=== PATIENT | female | born 1965 | race Caucasian/White ===

== ENCOUNTER → 2019-03-02 | Outpatient (CLI) | payer MEDICARE, MEDICAID ==
--- NOTE | 2019-03-02 17:35 | Diagnostic Imaging Report ---
PROCEDURE: CT chest without contrast. TECHNIQUE: Multiple contiguous axial images were obtained through the chest without the use of intravenous contrast. Auto Exposure Controls were utilized during the CT exam to meet ALARA standards for radiation dose reduction. INDICATION: COPD and shortness of breath. Evaluate for lung nodules. FINDINGS: There are background features of underlying centrilobular pulmonary emphysema. There are few tiny calcified granulomas demonstrated within the lungs bilaterally. In the right upper lobe, there appear to be small regions of patchy tree-in-bud nodularity which would be favored to be inflammatory in nature. There is no dominant pulmonary nodule or mass. There is some minimal linear scarring or atelectasis within the inferior aspect of the lingula. There are no findings of a pleural effusion demonstrated. There is no evidence of a pneumothorax. No pathologic enlargement of mediastinal lymph nodes evident. Thoracic aorta is normal in caliber. There are advanced coronary calcifications. There is no abnormal pericardial collection. The visualized portion of the upper abdomen demonstrates no acute process. An aortic stent graft device is noted. Alignment of the thoracic spine appears normal. There are no suspicious lytic or blastic osseous lesions. No acute fracture evident. IMPRESSION: 1. Background features of underlying centrilobular pulmonary emphysema. 2. Scattered bilateral calcified granulomas. 3. Additionally, there appear to be some minimal regions of [id number]-type inflammatory-appearing nodularity along several of the bronchi within the right upper lobe that are favored to be inflammatory in nature. 4. No dominant pulmonary mass or evidence of noncalcified pulmonary nodules. 5. No evidence of adenopathy. 6. Advanced coronary calcifications. 7. Prior abdominal aortic stent graft. Dictated by: Dictated on workstation # [id number]
== END ==
LOC: RAD 13:30
PROVIDERS: ATTEND Nurse Practitioner Family
DX: J44.9 Chronic obstructive pulmonary disease, unspecified (principal); I25.10 Atherosclerotic heart disease of native coronary artery without angina pectoris; L92.9 Granulomatous disorder of the skin and subcutaneous tissue, unspecified; R91.1 Solitary pulmonary nodule; Z95.828 Presence of other vascular implants and grafts
CPT/HCPCS: 71250

== ENCOUNTER → 2019-11-25 | Outpatient (CLI) | payer MEDICARE, MEDICAID ==
[2019-11-25 12:15] LABS: CREATININE SERUM 0.87 MG/DL (0.60-1.30); GFR ESTIMATED > 60
[2019-11-25 12:16] LABS: BUN/CREATININE RATIO 15
--- NOTE | 2019-11-25 12:33 | Diagnostic Imaging Report ---
EXAMINATION: CT Chest without contrast. TECHNIQUE: Multiple contiguous axial images were obtained through the chest without the use of intravenous contrast. All CT scans use one or more of the following dose optimizing techniques: automated exposure control, MA and/or KvP adjustment based on a patient size and exam type, or iterative reconstruction. HISTORY: Hypoxia. COMPARISON: 03/02/2019. FINDINGS: There is no edema or pneumonia. No pleural effusion. No pneumothorax. No suspicious nodules. Previously seen tree-in-bud nodules are no longer apparent. There is a small amount of lingular atelectasis. A few tiny chanel-fissural nodules, likely lymph nodes are stable. Lungs are moderately emphysematous. There is no axillary or supraclavicular lymphadenopathy. There is no mediastinal lymphadenopathy. Heart size is normal. There are moderate coronary artery calcifications. No pericardial effusion. Aorta is normal in caliber. Limited views of the upper abdomen show abdominal stent graft. There are no suspicious osseous lesions. IMPRESSION: 1. Previously seen tree-in-bud nodules are resolved. Other nodules are stable. No suspicious nodules are seen. Dictated by: Dictated on workstation # [id number]
== END ==
LOC: RAD 12:15
PROVIDERS: ATTEND Nurse Practitioner Family
DX: J44.9 Chronic obstructive pulmonary disease, unspecified (principal); R91.8 Other nonspecific abnormal finding of lung field
CPT/HCPCS: 36415; 71250; 82565; 84520